=== PATIENT | male | born 1980 | race Caucasian/White ===

== ENCOUNTER 2020-02-29 07:49 | Outpatient (CLI) | payer OTHER ==
--- NOTE | 2020-02-29 08:36 | ULT ---
ULTRASOUND ABDOMEN: HISTORY: Abdominal pain FINDINGS: The liver, spleen, gallbladder, pancreas, left kidneys and visualized portions of the aorta and IVC a ppear normal. The common duct measures 5mm in diameter. No free fluid is seen. There is a small echogenic focus in the subcapsular region of the right renal cortex which could represent a scar or m ass. IMPRESSION: Mass versus scar in the right kidney should be evaluated with a CT scan (with and without IV contrast) using the renal mass protocol.
== END 2020-02-29 07:50 | disposition home or self-care (01) ==
LOC: SCSULT 07:49
PROVIDERS: ATTEND Nurse Practitioner Family
DX: R74.8 Abnormal levels of other serum enzymes (principal)
CPT/HCPCS: 93975

== ENCOUNTER 2020-03-27 10:13 | Outpatient (CLI) | payer OTHER ==
--- NOTE | 2020-03-27 13:43 | CT ---
CT ABDOMEN WITH AND WITHOUT CONTRAST: 03/27/20 INDICATIONS: Elevated liver enzymes. Question renal lesion seen on ultrasound of 02/29/20. Ultrasound revealed a ti ny echogenic focus in the right renal cortex. FINDINGS: The liver and spleen appear unremarkable. Pancreas is unremarkable. Adrenal glands appear normal. Sto mach and duodenum unremarkable. Review of the kidneys showed no evidence of urinary calculus. No hydronephrosis. Both kidneys show sy mmetric enhancement and function. There is no evidence of renal mass or cyst. Etiology for the small echogenic focus seen on ultrasound in the right kidney is not apparent by CT. The osseous structures are unremarkable. Vertebral bodies maintain normal height and alignment. The aorta is normal caliber. The visualized bowel loops unremarkable. No adenopathy. Surgical clips s een anterior left lower abdomen. IMPRESSION: Unremarkable CT abdomen. No hepatic or renal abnormality identified. POS: AGW
== END 2020-03-27 10:14 | disposition home or self-care (01) ==
LOC: SCSCT 10:13
PROVIDERS: ATTEND Internal Medicine Cardiovascular Disease
DX: R74.8 Abnormal levels of other serum enzymes (principal); R93.429 Abnormal radiologic findings on diagnostic imaging of unspecified kidney
CPT/HCPCS: 74170

== ENCOUNTER 2020-03-29 07:35 | Outpatient (CLI) | payer OTHER ==
--- NOTE | 2020-03-29 08:50 | MRI ---
MRI CERVICAL SPINE WITHOUT CONTRAST: HISTORY: Pain, x2 years. Symptoms radiate down both arms.. COMPARISON: None. FINDINGS: Appropriate T1 marrow signal intensity of the cervical vertebra. Cervical spine vertebral body heigh t is maintained. No fracture. No significant STIR hyperintensity to suggest vertebral body edema or ligamentous injury. Visualized brain parenchyma, cervicomedullary junction, cervical cord and the upper thoracic cord hav e a normal size and signal intensity. C2-C3: No significant central canal stenosis or significant neural foraminal narrowing. C3-C4: Broad-based disc bulge with a superimposed central disc herniation. Mass effect and deformity of the midline cord. No cord signal abnormality. Mild central canal stenosis. Mild bilateral neural foraminal narrowing due to uncovertebral hypertrophy C4-C5: No significant posterior disc abnormality. No significant central canal stenosis. Mild bilater al foraminal narrowing due to facet hypertrophy. C5-C6: Moderate loss of disc space height. There is a broad-based discussed by complex abuts the thec al sac. Subarachnoid space is maintained. Mild to moderate central canal stenosis. Moderate to severe bilateral foraminal narrowing due to uncovertebral and facet hypertrophy. C6-C7: Mild loss of disc space height. Central disc herniation abuts the thecal sac. Subarachnoid spa ce is maintained. Mild central canal stenosis. Mild right foraminal narrowing due to uncovertebral hypertrophy. Patent left neural foramen. C7-T1: No significant central canal stenosis or significant neural foraminal narrowing. IMPRESSION: Degenerative changes of the cervical spine as described above. Transcribed Date/Time: 03/29/2020 9:14 AM
== END 2020-03-29 07:36 | disposition home or self-care (01) ==
LOC: SCSMRI 07:35
PROVIDERS: ATTEND Neurological Surgery
DX: M47.22 Other spondylosis with radiculopathy, cervical region (principal)
CPT/HCPCS: 72141